=== PATIENT | male | born 1985 | race African-American/Black ===

== ENCOUNTER → 2020-07-05 13:21 | Outpatient (BNVA) | payer OTHER, SELFPAY | PROVIDERS: Visit Provider Internal Medicine | DX: Z20.822 Contact with and (suspected) exposure to COVID-19 (principal) | CPT/HCPCS: 36415; 84450; 84460; 85025; 86803; 87389; 90715; 99202 ==

== ENCOUNTER → 2020-07-07 14:40 | Outpatient (BNVA) | payer OTHER, SELFPAY | PROVIDERS: Visit Provider Internal Medicine | DX: Z20.822 Contact with and (suspected) exposure to COVID-19 (principal) | CPT/HCPCS: 99213 ==

== ENCOUNTER → 2020-07-19 13:15 | Outpatient (BNVA) | payer OTHER, SELFPAY | PROVIDERS: Visit Provider Internal Medicine | DX: Z77.21 Contact with and (suspected) exposure to potentially hazardous body fluids (principal) | CPT/HCPCS: 36415; 80076; 82150; 82565; 85025; 99213 ==

== ENCOUNTER → 2020-08-02 13:37 | Outpatient (BNVA) | payer OTHER, SELFPAY | DX: Z77.21 Contact with and (suspected) exposure to potentially hazardous body fluids (principal) | CPT/HCPCS: 36415; 80076; 82150; 82565; 85025; 99213 ==

== ENCOUNTER → 2020-08-16 14:13 | Outpatient (BNVA) | payer OTHER, SELFPAY | DX: Z77.21 Contact with and (suspected) exposure to potentially hazardous body fluids (principal) | CPT/HCPCS: 36415; 82150; 84450; 84460; 87389; 99211 ==

== ENCOUNTER → 2020-10-04 14:39 | Outpatient (BNVA) | payer OTHER, SELFPAY | DX: Z77.21 Contact with and (suspected) exposure to potentially hazardous body fluids (principal) | CPT/HCPCS: 36415; 84450; 84460; 86803; 87389; 99211 ==